=== PATIENT | female | born 1975 | race Caucasian/White ===

== ENCOUNTER → 2023-08-30 16:08 | Outpatient (REF) | payer BC, SELFPAY | LOC: HWWDC 16:08 | PROVIDERS: ATTENDING PHYSICIAN Obstetrics & Gynecology; FAMILY PHYSICIAN Nurse Practitioner Adult Health | DX: Z12.31 Encounter for screening mammogram for malignant neoplasm of breast (principal) | CPT/HCPCS: 77063; 77067 ==

== ENCOUNTER → 2024-08-19 14:54 | Outpatient (REF) | payer BC, SELFPAY | LOC: HWRCS 14:54 | PROVIDERS: ATTENDING PHYSICIAN Nurse Practitioner Adult Health | DX: R01.1 Cardiac murmur, unspecified (principal) | CPT/HCPCS: 93306 ==

== ENCOUNTER → 2024-09-07 10:36 | Outpatient (REF) | payer BC, SELFPAY | LOC: RAD 10:36 | PROVIDERS: ATTENDING PHYSICIAN Internal Medicine Interventional Cardiology; FAMILY PHYSICIAN Nurse Practitioner Adult Health | DX: Q23.81 Bicuspid aortic valve (principal) | CPT/HCPCS: 71275; Q9967 ==

== ENCOUNTER → 2024-09-24 12:49 | Outpatient (REF) | payer BC, SELFPAY | LOC: RSP 12:49 | PROVIDERS: ATTENDING PHYSICIAN Nurse Practitioner Adult Health | DX: J45.20 Mild intermittent asthma, uncomplicated (principal) | CPT/HCPCS: 88738; 94010; 94727; 94729 ==

== ENCOUNTER → 2024-09-24 15:22 | Outpatient (REF) | payer BC, SELFPAY | LOC: HWWDC 15:22 | PROVIDERS: ATTENDING PHYSICIAN Obstetrics & Gynecology; FAMILY PHYSICIAN Nurse Practitioner Adult Health | DX: Z12.31 Encounter for screening mammogram for malignant neoplasm of breast (principal) | CPT/HCPCS: 77063; 77067 ==

== ENCOUNTER → 2024-10-23 10:49 | Outpatient (REF) | payer BC, SELFPAY | LOC: WDC 10:49 | PROVIDERS: ATTENDING PHYSICIAN Obstetrics & Gynecology; FAMILY PHYSICIAN Nurse Practitioner Adult Health | DX: R92.2 Inconclusive mammogram (principal) | CPT/HCPCS: 76641 ==